=== PATIENT | male | born 1965 | race Caucasian/White ===

== ENCOUNTER 2021-02-12 18:08 | Emergency (ER) | payer BC ==
[2021-02-12 18:25] VITALS: BP 123/79; PULSE 86; TEMP 98.1; BMI 29.7
[2021-02-12] MEDS ORDERED: CLINDAMYCIN HCL 150 MG CAPSULE (FP) PO ONE (18:39)
[2021-02-12] MEDS ORDERED: CLINDAMYCIN HCL 150 MG CAPSULE (FP) ONE (18:41)
== END 2021-02-12 19:09 | disposition home or self-care (01) ==
LOC: FER 18:08
DX: L72.3 Sebaceous cyst (principal)
CPT/HCPCS: 99283-25